=== PATIENT | female | born 1980 | race Caucasian/White ===

== ENCOUNTER 2019-02-09 11:41 | Emergency (ER) | payer OTHER ==
[2019-02-09 11:45] VITALS: RESP 18
[2019-02-09] MEDS ORDERED: HYDROmorphone 1 MG/ML 1 ML SYRINGE IVP STA ×2 (11:47→12:46)
[2019-02-09] MEDS ORDERED: SODIUM CHLORIDE 0.9% 2,000 ML IV STA (11:47)
[2019-02-09] MEDS ORDERED: ONDANSETRON 4 MG/2 ML VIAL IVP STA (11:51)
[2019-02-09 12:21] LABS: Basophils # (A) 0.1 k/uL (0-0.2); Basophils % (A) 1 %; Eosinophils # (A) 0.1 k/uL (0-0.7); Eosinophils % (A) 1 %; HCT 41.7 % (34.0-46.0); HGB 14.9 gm/dL (11.4-16.0); Lymphocytes # (A) 2.7 k/uL (1.0-4.8); Lymphocytes % (A) 30 %; MCH 31.7 pg (25.0-35.0); MCHC 35.8 g/dL (31.0-37.0); MCV 88.6 fL (80.0-100.0); Mean Platelet Volume 5.8; Monocytes # (A) 0.4 k/uL (0-1.0); Monocytes % (A) 5 %; Neutrophils # (A) 5.6 k/uL (1.3-7.7); Neutrophils % (A) 62 %; Platelet Count 256 k/uL (150-450); RBC 4.71 m/uL (3.80-5.40)
[2019-02-09 12:25] LABS: Partial Thromboplastin Time 22.8 sec (22.0-30.0); Prothrombin Time 10.4 sec (9.0-12.0)
[2019-02-09 12:32] LABS: ALT 14 U/L (9-52); AST 27 U/L (14-36); African American GFR (CKD) >90 (>60 ml/min/1.73 sqM); Albumin 4.1 g/dL (3.5-5.0); Alkaline Phosphatase 60 U/L (38-126); Amylase 38 U/L (30-110); Anion Gap 8 mmol/L; Blood Urea Nitrogen 10 mg/dL (7-17); Calcium 9.7 mg/dL (8.4-10.2); Carbon Dioxide 25 mmol/L (22-30); Chloride 105 mmol/L (98-107); Glucose 141 mg/dL (74-99); Potassium 3.9 mmol/L (3.5-5.1); Sodium 138 mmol/L (137-145); Total Bilirubin 0.3 mg/dL (0.2-1.3); Total Protein 6.8 g/dL (6.3-8.2)
--- NOTE | 2019-02-09 13:14 | CT ---
EXAMINATION TYPE: CT abdomen pelvis w con DATE OF EXAM: 02/09/2019 HISTORY: Abdominal pain CT DLP: 785.2mGycm Automated Exposure Control for Dose Reduction was Utilized. CONTRAST: CT scan of the abdomen and pelvis is performed with IV Contrast, patient injected with 100 ml mL of I sovue 300. COMPARISON: None. FINDINGS: LUNG BASES: Minimal dependent bibasilar subsegmental atelectasis is seen, right greater than left. LIVER/GB: Mild coarsened heterogenous echotexture of the hepatic parenchyma, which most commonly jamar esponds to hepatic steatosis and limits evaluation for underlying hepatic masses. Common bile duct is mildly enlarged measuring 7 mm. Small amount of dependent biliary sludge is seen. Minimal intrahepat ic biliary ductal dilatation is noted. Too small to accurately characterize hypoattenuated left hepat ic lobe lesion may represent a cyst. PANCREAS: No significant abnormality is seen. SPLEEN: No significant abnormality is seen. ADRENALS: No significant abnormality is seen. KIDNEYS: There is moderate right-sided hydronephrosis. There is a questionable punctate hyperdense 1 to 2 mm focus on coronal image 44 near the right ureterovesicular junction and less well seen with sl ight hyperdensity that is asymmetric on axial image 83. Additionally posterior to this the cervix is diffusely enlarged and heterogenous with central hypoechoic areas. There is some surrounding fat stra nding. Midline intrauterine device is seen. There is delayed enhancement of the right kidney in astrid rison the left as excretion is seen on the left on delayed images and cortical medullary phase is see n on the right. Probable left renal cyst measuring 9 mm and left renal calculi measuring 5 mm (2 in n umber are seen on coronal image 57. Additional small probable cyst although too small to accurately c haracterize, is seen on image 61 on the left. BOWEL: Appendix appears surgically absent. There is moderate amount retained colonic debris with no d ilated large or small bowel. LYMPH NODES: No greater than 1cm abdominal or pelvic lymph nodes are appreciated. OSSEOUS STRUCTURES: No significant abnormality is seen. IMPRESSION: 1. Moderate right hydronephrosis. There is a questionable distal 1 to 2 mm calculus at the right uret erovesicular junction that could create the right-sided hydronephrosis. Additionally however there is diffuse enlargement and heterogeneity of the cervix with surrounding mild inflammatory fat stranding . Direct visualization and sampling is recommended to exclude cervical carcinoma. Evaluation for pelv ic inflammatory disease is also recommended. 2. Common bile duct is mildly dilated and there is minimal intrahepatic biliary ductal dilatation. No pericholecystic fluid. Minimal biliary sludge. MRCP with and without contrast could evaluate for per iampullary mass, stricture, or cholangitis if there is no suspicion for acute cholecystitis. 3. Mild degree hepatic steatosis. 4. Nonobstructing left renal calculi.
[2019-02-09] MEDS ORDERED: KETOROLAC 30 MG/ML 1 ML VIAL IVP STA (13:30)
--- NOTE | 2019-02-09 13:37 | ED ---
Abdominal Pain HPI - General Chief Complaint: Abdominal Pain Stated Complaint: abdominal pain Time Seen by Provider: 02/09/19 11:46 Source: patient, RN notes reviewed Mode of arrival: ambulatory Limitations: no limitations - History of Present Illness Initial Comments: 38-year-old female presents emergency Department with chief complaint of severe sudden onset of right lower quadrant pain. Patient states she was sitting at work when states started. 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 Patient states that she cannot get comfortable does not worsen with movements. Patient has no history of abdominal surgeries. Patient does state that she has not IUD in place is no concern for . Patient admits nausea with no vomitus time. Patient states that there is some discomfort into her back - Related Data Home Medications Medication Instructions Recorded Confirmed Dextroamphetamine/Amphetamine 20 mg PO BID 10/08/17 10/08/17 [Adderall] Gabapentin 600 mg PO TID 10/08/17 10/08/17 QUEtiapine [SEROquel] 200 mg PO HS 10/08/17 10/08/17 Previous Rx's Medication Instructions Recorded Ketorolac [Toradol] 10 mg PO Q8HR #15 tab 02/09/19 Ondansetron Odt [Zofran Odt] 4 mg PO Q8HR PRN #10 tab 02/09/19 Tamsulosin [Flomax] 0.4 mg PO DAILY #7 cap 02/09/19 Allergies Allergy/AdvReac Type Severity Reaction Status Date / Time clindamycin [From Cleocin] Allergy Rash/Hives Verified 02/09/19 12:12 latex Allergy Rash/Hives Verified 02/09/19 12:12 Sulfa (Sulfonamide Allergy Unknown Verified 02/09/19 12:12 Antibiotics) Review of Systems ROS Statement: Those systems with pertinent positive or pertinent negative responses have been documented in the HPI. ROS Other: All systems not noted in ROS Statement are negative. 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 Absent: scleral icterus, conjunctival injection, periorbital swelling ENT exam: Present: normal exam, normal oropharynx, mucous membranes moist Neck exam: Present: normal inspection. Absent: tenderness, meningismus, lymphadenopathy Respiratory exam: Present: normal lung sounds bilaterally. Absent: respiratory distress, wheezes, rales, rhonchi, stridor Cardiovascular Exam: Present: regular rate, normal rhythm, normal heart sounds. Absent: systolic murmur, diastolic murmur, rubs, gallop, clicks GI/Abdominal exam: Present: soft, tenderness (Severe right-sided), normal bowel sounds. Absent: distended, guarding, rebound, rigid Speculum exam: Present: vaginal discharge, cervical discharge. Absent: normal speculum exam Back exam: Present: CVA tenderness (R). Absent: CVA tenderness (L) Neurological exam: Present: alert, oriented X3 Skin exam: Present: warm, dry, intact, normal color. Absent: rash Course Vital Signs 02/09/19 02/09/19 02/09/19 11:43 13:05 13:38 Temperature 97.4 F L Pulse Rate 99 61 73 Respiratory 18 18 18 Rate Blood Pressure 159/104 167/102 135/96 O2 Sat by Pulse 97 100 100 Oximetry Medical Decision Making - Medical Decision Making 30-year-old female presented for severe right-sided abdominal pain. CT shows evidence of a 2 mm UVJ stone. Patient denies inflammatory changes of her cervix concerning for PID versus cervical carcinoma. Exam was performed there is mild discharge. Patient we treated at this time will follow-up with her [facility] return for any worsening symptoms. - Lab Data Result diagrams: 02/09/19 12:00 02/09/19 12:00 Lab Results 02/09/19 02/09/19 02/09/19 Range/Units 12:00 12:00 12:00 WBC 9.0 (3.8-10.6) k/uL RBC 4.71 (3.80-5.40) m/uL Hgb 14.9 (11.4-16.0) gm/dL Hct 41.7 (34.0-46.0) % MCV 88.6 (80.0-100.0) fL MCH 31.7 (25.0-35.0) pg MCHC 35.8 (31.0-37.0) g/dL RDW 12.0 (11.5-15.5) % Plt Count 256 (150-450) k/uL Neutrophils % 62 % Lymphocytes % 30 % Monocytes % 5 % Eosinophils % 1 % Basophils % 1 % Neutrophils # 5.6 (1.3-7.7) k/uL Lymphocytes # 2.7 (1.0-4.8) k/uL Monocytes # 0.4 (0-1.0) k/uL Eosinophils # 0.1 (0-0.7) k/uL Basophils # 0.1 (0-0.2) k/uL PT (9.0-12.0) sec INR (<1.2) APTT (22.0-30.0) sec Sodium 138 (137-145) mmol/L Potassium 3.9 (3.5-5.1) mmol/L Chloride 105 (98-107) mmol/L Carbon Dioxide 25 (22-30) mmol/L Anion Gap 8 mmol/L BUN 10 (7-17) mg/dL Creatinine 0.63 (0.52-1.04) mg/dL Est GFR (CKD-EPI)AfAm >90 (>60 ml/min/1.73 sqM) Est GFR (CKD-EPI)NonAf >90 (>60 ml/min/1.73 sqM) Glucose 141 H (74-99) mg/dL Plasma Lactic Acid Sylvester 1.9 (0.7-2.0) mmol/L Calcium 9.7 (8.4-10.2) mg/dL Total Bilirubin 0.3 (0.2-1.3) mg/dL AST 27 (14-36) U/L ALT 14 (9-52) U/L Alkaline Phosphatase 60 (38-126) U/L Total Protein 6.8 (6.3-8.2) g/dL Albumin 4.1 (3.5-5.0) g/dL Amylase 38 (30-110) U/L Lipase 19 L (23-300) U/L Urine HCG, Qual (Not Detectd) 02/09/19 02/09/19 Range/Units 12:00 14:02 WBC (3.8-10.6) k/uL RBC (3.80-5.40) m/uL Hgb (11.4-16.0) gm/dL Hct (34.0-46.0) % MCV (80.0-100.0) fL MCH (25.0-35.0) pg MCHC (31.0-37.0) g/dL RDW (11.5-15.5) % Plt Count (150-450) k/uL Neutrophils % % Lymphocytes % % Monocytes % % Eosinophils % % Basophils % % Neutrophils # (1.3-7.7) k/uL Lymphocytes # (1.0-4.8) k/uL Monocytes # (0-1.0) k/uL Eosinophils # (0-0.7) k/uL Basophils # (0-0.2) k/uL PT 10.4 (9.0-12.0) sec INR 1.0 (<1.2) APTT 22.8 (22.0-30.0) sec Sodium (137-145) mmol/L Potassium (3.5-5.1) mmol/L Chloride (98-107) mmol/L Carbon Dioxide (22-30) mmol/L Anion Gap mmol/L BUN (7-17) mg/dL Creatinine (0.52-1.04) mg/dL Est GFR (CKD-EPI)AfAm (>60 ml/min/1.73 sqM) Est GFR (CKD-EPI)NonAf (>60 ml/min/1.73 sqM) Glucose (74-99) mg/dL Plasma Lactic Acid Sylvester (0.7-2.0) mmol/L Calcium (8.4-10.2) mg/dL Total Bilirubin (0.2-1.3) mg/dL AST (14-36) U/L ALT (9-52) U/L Alkaline Phosphatase (38-126) U/L Total Protein (6.3-8.2) g/dL Albumin (3.5-5.0) g/dL Amylase (30-110) U/L Lipase (23-300) U/L Urine HCG, Qual Not Detected (Not Detectd) Disposition Clinical Impression: Right ureteral calculus, Vaginal discharge Disposition: HOME SELF-CARE Condition: Stable Instructions (If sedation given, give patient instructions): Kidney Stones (ED) Additional Instructions: Please return to the Emergency Department if symptoms worsen or any other concerns. Prescriptions: Tamsulosin [Flomax] 0.4 mg PO DAILY #7 cap Ketorolac [Toradol] 10 mg PO Q8HR #15 tab Ondansetron Odt [Zofran Odt] 4 mg PO Q8HR PRN #10 tab PRN Reason: Nausea Is patient prescribed a controlled substance at d/c from ED?: No Referrals: Dino Ocampo DO [Primary Care Provider] - 1-2 days Time of Disposition: 14:32
[2019-02-09 14:30] LABS: Appearance,Urine Cloudy (Clear); Bilirubin,Urine Negative (Negative); Blood,Urine Large (Negative); Calcium Oxalate Crystals,Urine Rare /hpf; Color,Urine Yellow; Glucose,Urine (UA) Negative (Negative); Ketones,Urine Negative (Negative); Leukocyte Esterase,Urine Moderate (Negative); Mucus,Urine Rare /hpf; Nitrite,Urine Negative (Negative); Protein,Urine Trace (Negative); RBC,Urine >182 /hpf (0-5); Squamous Epithelial Cell,Urine 20 /hpf (0-4); Urobilinogen,Urine <2.0 mg/dL (<2.0)
[2019-02-09] MEDS ORDERED: AZITHROMYCIN 250 MG TAB PO STA (14:32)
[2019-02-09] MEDS ORDERED: cefTRIAXone IN SWFI 1,000 MG/10 ML SYRINGE IVP STA (14:32)
[2019-02-09 14:56] VITALS: BP 116/87; PULSE 87; TEMP 97.5
[2019-02-10 14:24] LABS: C. trachomatis,PCR Negative (Neg,Equiv); Chlamydia trachomatis Source Cervix; N. gonorrhoeae,PCR Negative (Neg,Equiv); Neisseria Source Cervix
== END 2019-02-09 14:55 | disposition home or self-care (01) ==
LOC: EC 11:41
DX: N89.8 Other specified noninflammatory disorders of vagina (principal); N13.2 Hydronephrosis with renal and ureteral calculous obstruction; Z32.02 Encounter for pregnancy test, result negative; F31.9 Bipolar disorder, unspecified; F17.200 Nicotine dependence, unspecified, uncomplicated; Z79.899 Other long term (current) drug therapy; Z88.1 Allergy status to other antibiotic agents; Z88.2 Allergy status to sulfonamides; Z91.040 Latex allergy status
CPT/HCPCS: 36415; 80053; 82150; 83605; 83690; 85025; 85610; 85730; 81001; 81025; 87491; 87591; 87070; 87086; 74177; 99284; 96374; 96375 ×3; 96376; 96361 ×3; J2405; J0696; J1885; J1170; Q9967

== ENCOUNTER 2020-02-03 21:10 | Emergency (ER) | payer OTHER ==
[2020-02-03 21:31] VITALS: TEMP 97.9
--- NOTE | 2020-02-03 21:59 | ED ---
Female Urogenital HPI - General Chief complaint: Urogenital Stated complaint: Dark Urine Time Seen by Provider: 02/03/20 21:40 Source: patient, family Limitations: no limitations - History of Present Illness Initial comments: 39-year-old female patient presents to the emergency department today for evaluation of dark colored urine. Patient states that she noticed it this morning when she woke from sleep. Patient states that it persisted throughout the day. States that she is having a very vague, pressure-type pain to the left lower quadrant abdomen. Denies radiation to her back. Denies nausea, vomiting, fever, or chills. Denies any back or flank pain. Patient denies history of similar urine appearance. Denies any dysuria, urinary frequency, urinary urgency. 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 Patient denies any recent rash, shortness of breath, chest pain, diarrhea, constipation, back pain, numbness, tingling, dizziness, weakness, headache, visual changes, or any other complaints. - Related Data Home Medications Medication Instructions Recorded Confirmed Dextroamphetamine/Amphetamine 20 mg PO BID 10/08/17 10/08/17 [Adderall] Gabapentin 600 mg PO TID 10/08/17 10/08/17 QUEtiapine [SEROquel] 200 mg PO HS 10/08/17 10/08/17 Previous Rx's Medication Instructions Recorded Ketorolac [Toradol] 10 mg PO Q8HR #15 tab 02/09/19 Ondansetron Odt [Zofran Odt] 4 mg PO Q8HR PRN #10 tab 02/09/19 Tamsulosin [Flomax] 0.4 mg PO DAILY #7 cap 02/09/19 Cephalexin [Keflex] 500 mg PO Q6HR #40 cap 02/04/20 Allergies Allergy/AdvReac Type Severity Reaction Status Date / Time clindamycin [From Cleocin] Allergy Rash/Hives Verified 02/03/20 21:31 latex Allergy Rash/Hives Verified 02/03/20 21:31 Sulfa (Sulfonamide Allergy Unknown Verified 02/03/20 21:31 Antibiotics) Review of Systems ROS Statement: Those systems with pertinent positive or pertinent negative responses have been documented in the HPI. ROS Other: All systems not noted in ROS Statement are negative. 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 Vital signs upon presentation are temperature 97.9F, pulse 81, respirations 16, blood pressure 146/90, pulse ox 98% on room air.) Respiratory exam: Present: normal lung sounds bilaterally. Absent: respiratory distress, wheezes, rales, rhonchi, stridor Cardiovascular Exam: Present: regular rate, normal rhythm, normal heart sounds. Absent: systolic murmur, diastolic murmur, rubs, gallop, clicks GI/Abdominal exam: Present: soft, normal bowel sounds. Absent: distended, tenderness, guarding, rebound, rigid Neurological exam: Present: alert, oriented X3, CN II-XII intact Psychiatric exam: Present: normal affect, normal mood Skin exam: Present: warm, dry, intact, normal color. Absent: rash Course Vital Signs 02/03/20 02/04/20 02/04/20 21:27 00:21 01:09 Temperature 97.9 F Pulse Rate 81 84 80 Respiratory 16 18 18 Rate Blood Pressure 146/90 157/101 132/86 O2 Sat by Pulse 98 97 97 Oximetry Medical Decision Making - Medical Decision Making 39-year-old female patient presents to the emergency department today for evaluation of dark urine. Patient is also reporting a vague pressure type pain to the left lower quadrant. Physical examination revealed soft nontender abdomen. No CVA tenderness. Labs reviewed and revealed normal CBC and comp. She did have large amount of blood in her urine. We did send this for culture. She will be treated for possible hemorrhagic cystitis. Patient does have a history of porphyria, we also discussed that this could be an early acute flare and that she should return immediately should she start developing other symptoms. She is instructed to follow-up with her primary care physician for recheck on Thursday. Return parameters were discussed in detail. She verbalizes understanding and agrees with this plan. - Lab Data Result diagrams: 02/03/20 23:22 02/03/20 23:22 Lab Results 02/03/20 02/03/20 02/03/20 Range/Units 22:02 23:22 23:22 WBC 6.6 (3.8-10.6) k/uL RBC 4.67 (3.80-5.40) m/uL Hgb 14.1 (11.4-16.0) gm/dL Hct 42.0 (34.0-46.0) % MCV 90.0 (80.0-100.0) fL MCH 30.2 (25.0-35.0) pg MCHC 33.6 (31.0-37.0) g/dL RDW 13.0 (11.5-15.5) % Plt Count 217 (150-450) k/uL Neutrophils % 62 % Lymphocytes % 27 % Monocytes % 6 % Eosinophils % 3 % Basophils % 1 % Neutrophils # 4.1 (1.3-7.7) k/uL Lymphocytes # 1.8 (1.0-4.8) k/uL Monocytes # 0.4 (0-1.0) k/uL Eosinophils # 0.2 (0-0.7) k/uL Basophils # 0.0 (0-0.2) k/uL PT 10.1 (9.0-12.0) sec INR 1.0 (<1.2) APTT 26.3 (22.0-30.0) sec Sodium (137-145) mmol/L Potassium (3.5-5.1) mmol/L Chloride (98-107) mmol/L Carbon Dioxide (22-30) mmol/L Anion Gap mmol/L BUN (7-17) mg/dL Creatinine (0.52-1.04) mg/dL Est GFR (CKD-EPI)AfAm (>60 ml/min/1.73 sqM) Est GFR (CKD-EPI)NonAf (>60 ml/min/1.73 sqM) Glucose (74-99) mg/dL Calcium (8.4-10.2) mg/dL Total Bilirubin (0.2-1.3) mg/dL AST (14-36) U/L ALT (4-34) U/L Alkaline Phosphatase (38-126) U/L Total Protein (6.3-8.2) g/dL Albumin (3.5-5.0) g/dL Urine Color Dark Brown Urine Appearance Turbid H (Clear) Urine pH 6.0 (5.0-8.0) Ur Specific [place] 1.022 (1.001-1.035) Urine Protein 2+ H (Negative) Urine Glucose (UA) Negative (Negative) Urine Ketones Negative (Negative) Urine Blood Large H (Negative) Urine Nitrite Negative (Negative) Urine Bilirubin Negative (Negative) Urine Urobilinogen <2.0 (<2.0) mg/dL Ur Leukocyte Esterase Small H (Negative) Urine RBC >182 H (0-5) /hpf Ur Squamous Epith Cells 8 H (0-4) /hpf 02/03/20 Range/Units 23:22 WBC (3.8-10.6) k/uL RBC (3.80-5.40) m/uL Hgb (11.4-16.0) gm/dL Hct (34.0-46.0) % MCV (80.0-100.0) fL MCH (25.0-35.0) pg MCHC (31.0-37.0) g/dL RDW (11.5-15.5) % Plt Count (150-450) k/uL Neutrophils % % Lymphocytes % % Monocytes % % Eosinophils % % Basophils % % Neutrophils # (1.3-7.7) k/uL Lymphocytes # (1.0-4.8) k/uL Monocytes # (0-1.0) k/uL Eosinophils # (0-0.7) k/uL Basophils # (0-0.2) k/uL PT (9.0-12.0) sec INR (<1.2) APTT (22.0-30.0) sec Sodium 137 (137-145) mmol/L Potassium 3.4 L (3.5-5.1) mmol/L Chloride 103 (98-107) mmol/L Carbon Dioxide 31 H (22-30) mmol/L Anion Gap 3 mmol/L BUN 12 (7-17) mg/dL Creatinine 0.64 (0.52-1.04) mg/dL Est GFR (CKD-EPI)AfAm >90 (>60 ml/min/1.73 sqM) Est GFR (CKD-EPI)NonAf >90 (>60 ml/min/1.73 sqM) Glucose 106 H (74-99) mg/dL Calcium 9.2 (8.4-10.2) mg/dL Total Bilirubin 0.3 (0.2-1.3) mg/dL AST 23 (14-36) U/L ALT 11 (4-34) U/L Alkaline Phosphatase 64 (38-126) U/L Total Protein 6.8 (6.3-8.2) g/dL Albumin 3.9 (3.5-5.0) g/dL Urine Color Urine Appearance (Clear) Urine pH (5.0-8.0) Ur Specific [place] (1.001-1.035) Urine Protein (Negative) Urine Glucose (UA) (Negative) Urine Ketones (Negative) Urine Blood (Negative) Urine Nitrite (Negative) Urine Bilirubin (Negative) Urine Urobilinogen (<2.0) mg/dL Ur Leukocyte Esterase (Negative) Urine RBC (0-5) /hpf Ur Squamous Epith Cells (0-4) /hpf Disposition Clinical Impression: Hematuria Disposition: HOME SELF-CARE Condition: Good Instructions (If sedation given, give patient instructions): Urinary Tract Infection in Women (ED) Additional Instructions: Increase fluids. Complete antibiotic prescription and full. Follow-up through primary care physician for recheck in 1-2 days. Return to the emergency department immediately for any confusion or significant abdominal pain, or any other new, worsening, or concerning symptoms. Prescriptions: Cephalexin [Keflex] 500 mg PO Q6HR #40 cap Is patient prescribed a controlled substance at d/c from ED?: No Referrals: Dino Ocampo DO [Primary Care Provider] - 1-2 days Time of Disposition: 00:48
[2020-02-03 22:22] LABS: Appearance,Urine Turbid (Clear); Bilirubin,Urine Negative (Negative); Blood,Urine Large (Negative); Color,Urine Dark Brown; Glucose,Urine (UA) Negative (Negative); Ketones,Urine Negative (Negative); Leukocyte Esterase,Urine Small (Negative); Nitrite,Urine Negative (Negative); Protein,Urine 2+ (Negative); RBC,Urine >182 /hpf (0-5); Squamous Epithelial Cell,Urine 8 /hpf (0-4); Urobilinogen,Urine <2.0 mg/dL (<2.0)
[2020-02-03 22:25] LABS: Specific Gravity,Urine 1.022 (1.001-1.035)
[2020-02-03] MEDS ORDERED: SODIUM CHLORIDE 0.9% 1,000 ML IV ONE (23:06)
[2020-02-03 23:40] LABS: Basophils % (A) 1 %; Eosinophils # (A) 0.2 k/uL (0-0.7); Eosinophils % (A) 3 %; HGB 14.1 gm/dL (11.4-16.0); Lymphocytes # (A) 1.8 k/uL (1.0-4.8); Lymphocytes % (A) 27 %; MCH 30.2 pg (25.0-35.0); MCHC 33.6 g/dL (31.0-37.0); Mean Platelet Volume 6.9; Monocytes # (A) 0.4 k/uL (0-1.0); Monocytes % (A) 6 %; Neutrophils # (A) 4.1 k/uL (1.3-7.7); Neutrophils % (A) 62 %; Platelet Count 217 k/uL (150-450); RBC 4.67 m/uL (3.80-5.40); WBC 6.6 k/uL (3.8-10.6)
[2020-02-03 23:54] LABS: Partial Thromboplastin Time 26.3 sec (22.0-30.0); Prothrombin Time 10.1 sec (9.0-12.0)
[2020-02-04 00:03] LABS: ALT 11 U/L (4-34); AST 23 U/L (14-36); African American GFR (CKD) >90 (>60 ml/min/1.73 sqM); Albumin 3.9 g/dL (3.5-5.0); Alkaline Phosphatase 64 U/L (38-126); Anion Gap 3 mmol/L; Blood Urea Nitrogen 12 mg/dL (7-17); Calcium 9.2 mg/dL (8.4-10.2); Carbon Dioxide 31 mmol/L (22-30); Chloride 103 mmol/L (98-107); Glucose 106 mg/dL (74-99); Non-African American GFR(CKD) >90 (>60 ml/min/1.73 sqM); Potassium 3.4 mmol/L (3.5-5.1); Sodium 137 mmol/L (137-145); Total Bilirubin 0.3 mg/dL (0.2-1.3); Total Protein 6.8 g/dL (6.3-8.2)
[2020-02-04 00:24] VITALS: RESP 18
[2020-02-04] MEDS ORDERED: POTASSIUM CHLORIDE ER 20 MEQ TAB.ER PO STA (00:41)
[2020-02-04] MEDS ORDERED: cefTRIAXone IN SWFI 1,000 MG/10 ML SYRINGE IVP STA (00:48)
[2020-02-04 01:10] VITALS: BP 132/86; PULSE 80
== END 2020-02-04 01:18 | disposition home or self-care (01) ==
LOC: EC 21:10
DX: R31.9 Hematuria, unspecified (principal); R10.32 Left lower quadrant pain; F31.9 Bipolar disorder, unspecified; F90.9 Attention-deficit hyperactivity disorder, unspecified type; F17.200 Nicotine dependence, unspecified, uncomplicated; Z79.899 Other long term (current) drug therapy; Z88.2 Allergy status to sulfonamides; Z88.1 Allergy status to other antibiotic agents; Z91.040 Latex allergy status
CPT/HCPCS: 36415; 80053; 85025; 85610; 85730; 81001; 99283; 96374; 96361 ×2; J0696